=== PATIENT | male | born 2000 | race Caucasian/White ===

== ENCOUNTER 2020-08-31 00:37 | Emergency (ER) | payer SELFPAY ==
[2020-08-31 00:53] VITALS: BP 132/70; PULSE 78; RESP 16; TEMP 37.7; O2SAT 96; BMI 29.0
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
== END 2020-08-31 02:41 | disposition home or self-care (01) ==
PROVIDERS: Emergency Provider Emergency Medicine Emergency Medical Services
DX: T25.022A Burn of unspecified degree of left foot, initial encounter (principal); T31.0 Burns involving less than 10% of body surface; L03.116 Cellulitis of left lower limb; E11.9 Type 2 diabetes mellitus without complications
CPT/HCPCS: 99283

== ENCOUNTER 2024-07-07 19:34 | Emergency (ER) | payer OTHER, SELFPAY ==
[2024-07-07] VITALS (8 sets, daily range): BP systolic 117–134; BP diastolic 47–76; PULSE 139–150; RESP 16–36; TEMP 36.7–38.8; O2SAT 96–100; BMI 30.1
--- NOTE | ~2024-07-07 | XR_ITS ---
CLINICAL HISTORY: dyspnea 1 view chest x-ray Comparison: None Findings: No consolidation or effusion. Normal size heart. No acute fracture. IMPRESSION: 1. No acute findings. This document has been electronically signed by: Saji Avila MD on 07/07/2024 20:55:09
--- NOTE | 2024-07-07 19:39 | ECG_ITS ---
Test Reason : SOB Blood Pressure : */* mmHG Vent. Rate : 140 BPM Atrial Rate : 140 BPM P-R Int : 132 ms QRS Dur : 80 ms QT Int : 278 ms P-R-T Axes : 63 15 44 degrees QTcB Int : 424 ms Sinus tachycardia Otherwise normal ECG When compared with ECG of 18-Nov-2017 01:09, No significant change was found Referred By: Jean-Claude Gardner Electronically Signed By: CATE PORRAS MD
--- NOTE | 2024-07-07 19:51 | ED.GENADULT ---
HPI - General Adult General Chief complaint: Dyspnea Stated complaint: sob, dry cough Time Seen by Provider: 07/07/24 19:38 Source: patient and EMS Mode of arrival: EMS Limitations: no limitations History of Present Illness HPI narrative: This is a 24-year-old man with a past medical history of asthma, reports history of panic who is brought in by EMS for evaluation dyspnea. The patient states that he had sick contact with family members who were positive for flu, COVID and rhinovirus. Patient reports developing headache, nasal congestion, dry cough and myalgias 1 day prior to presentation. He states that he used his albuterol yesterday evening prior to bed. He reports taking 2 puffs at a time. Patient reports waking up having chest pain associated with his coughing. Patient reports taking 2 more puffs of the albuterol. Patient states that he went most of the day without eating any albuterol and subsequently developed dyspnea and due to nebulized albuterol and a few puffs of of his albuterol inhaler this afternoon. He states feeling feverish. He states no hemoptysis or sputum production. He states no vomiting. He states no changes to bowel habits or any urinary symptoms. Related Data Previous Rx's ?Medication ?Instructions ?Recorded clindamycin HCl 300 mg capsule 300 mg PO Q6H cellulitis 7 days 08/31/20 #28 caps prednisone 50 mg tablet 50 mg PO DAILY 4 days #4 tabs 07/07/24 Allergies Allergy/AdvReac Type Severity Reaction Status Date / Time No Known Allergies Allergy Verified 07/07/24 20:02 [No Known Allergies*] Review of Systems Review of Systems: ROS as per HPI [facility] Past Medical History Medical History Asthma Migraine Social History Social History Advance Directives: No Advance Directives Information Provided: No Physical Exam ED Vital Signs: Vital Signs - 24 hr 07/07/24 19:52 07/07/24 19:58 07/07/24 20:00 Temperature 98.2 F 98.1 F Pulse Rate 145 H 150 H 139 H Respiratory Rate 28 H 22 H 26 H Blood Pressure 117/67 117/67 Pulse Oximetry 99 100 Oxygen Delivery Method Room Air Room Air BMI result Body Mass Index 30.1 Gen: NAD, AOx3 HEENT: NCAT, EOMI, normal conjunctiva CV: Tachycardic rate, regular rhythm Pulm: Few scattered expiratory wheezes GI: Soft, NTND Neuro: Grossly non focal Medications Administered Discontinued Medications Generic Name Dose Route Start Last Admin Trade Name Hernandoq PRN Reason Stop Dose Admin Levalbuterol HCl 2.5 mg/ 0 mg 07/07/24 19:55 07/07/24 19:58 Ipratropium Harcourt 0.5 mg INHALE 07/07/24 19:56 1 dose ONCE ONE Administration Sodium Chloride 1,000 mls @ 999 mls/hr 07/07/24 19:45 07/07/24 20:11 Ns IV 07/07/24 20:45 999 mls/hr .Q1H1M JACOBY Administration Methylprednisolone Sodium Succinate 125 mg 07/07/24 19:40 07/07/24 20:11 Methylprednisolone Sod Succ 125 Mg/2 Ml Vial IVPUSH 07/07/24 19:41 125 mg ONCE ONE Administration Medical Decision Making Medical Decision Making [facility] Narrative: Differential diagnosis includes, but is not limited to viral URI, asthma exacerbation, panic attack, anxiety, pneumothorax. This is not sepsis. Patient is afebrile and hemodynamically stable on room air albeit tachycardic on arrival, which I suspect is likely multifactorial and secondary to this component of anxiety, beta agonist therapy and mild asthma exacerbation. Exam is benign and reassuring is notable for scattered expiratory wheezes consistent with bronchospasm for which patient is provided nebulized bronchodilators and Solu-Medrol. He is also provided supportive care with IV fluids and Toradol. Care is transitioned to oncoming physician, Dr. Calhoun, with disposition pending completion of. Of observation and spacing of nebulized bronchodilators. Admission/Observation Consideration of admission/observation: Escalation of care including admission/observation considered Lab Data [facility] Lab Attestation statement: I reviewed the patient's lab results. CBC is unremarkable with no cell line derangement. Metabolic panel is unremarkable with no acute kidney injury or electrolyte derangement. Patient is negative for COVID-19, influenza and RSV. 07/07/24 20:07 07/07/24 20:07 Labs: Lab Results 07/07/24 07/07/24 Range/Units 20:06 20:07 WBC 6.5 (4.8-10.8) X10*3/uL RBC 4.92 (4.60-5.80) X10*6/uL Hgb 14.8 (14.0-18.0) g/dl Hct 40.9 L (42.0-52.0) % MCV 83.1 (80.0-98.0) fL MCH 30.1 (27.0-33.0) pg MCHC 36.2 H (31.0-36.0) g/dl RDW 12.2 (11.0-16.0) % Plt Count 290 (160-400) X10*3/uL MPV 8.7 L (9.4-12.4) fL Immature Gran % (Auto) 0.3 (0.0-0.4) % Neut % (Auto) 66.6 (45-73) % Lymph % (Auto) 13.7 L (20-40) % [place] % (Auto) 18.6 H (2-11) % Eos % (Auto) 0.5 (0-4) % Baso % (Auto) 0.3 (0-2) % Lymph # (Auto) 0.9 L (1.2-4.9) X10*3/uL [place] # (Auto) 1.2 (0.1-1.2) X10*3/uL Eos # (Auto) 0.0 (0.0-0.4) X10*3/uL Baso # (Auto) 0.0 (0.0-0.2) X10*3/uL Abs Immat Gran (auto) 0.02 (0.00-0.03) X10*3/uL Absolute Neuts (auto) 4.4 (2.0-8.3) x10*3/uL Absolute Nucleated RBC 0.000 (0.0-0.012) X10*3/uL Nucleated RBC % (auto) 0.0 (0.0-0.2) /100WBC Sodium 137 (135-145) mmol/L Potassium 3.3 (3.3-5.1) mmol/L Chloride 107 (96-108) mmol/L Carbon Dioxide 20 L (22-29) mmol/L Anion Gap 13 (12-20) BUN 12 (9-16) mg/dL Creatinine 0.79 (0.5-1.4) mg/dL Estim Creat Clear Calc 149.4 Estimated GFR > 60 Random Glucose 102 (60-115) mg/dL Calcium 9.0 (8.4-10.2) mg/dL Influenza Type A (PCR) NEGATIVE (Negative) Influenza Type B (PCR) NEGATIVE (Negative) RSV RNA Qual (PCR) NEGATIVE (Negative) SARS-CoV-2 RNA (RT-PCR) NEGATIVE (Negative) Independent Interpretation I performed an independent interpretation of an: EKG and Plain X-Ray Interpretation: I independently reviewed and interpreted the patient's EKG, which demonstrates sinus tachycardia at 140 beats per minute, MO 132, QRS 80, QTC 424, no STEMI. I independently reviewed and interpreted the patient's chest x-ray, which demonstrates no pleural effusion, focal consolidation or pneumothorax. Radiology Impression Discussion of test interpretation with radiology: I have reviewed the radiologist's reading. Radiologist Impression: IMPRESSION: 1. No acute findings. This document has been electronically signed by: Saji Avila MD on 07/07/2024 20:55:09 Dictated By: Saji Avila MD Signed By: <Electronically signed by Saij Avila MD in OV> 07/07/242055 Independent Historian Clinical information obtained from an independent historian. History obtained from or confirmed by: EMS EMS provides additional and pre-hospital history Discharge Plan Discharge Clinical Impression: Asthma with exacerbation Patient Disposition: Still a Patient Instructions: Asthma (ED) Additional Instructions: You were seen and evaluated in the emergency room. Your emergency room evaluation was overall very reassuring and you are safe to be discharged home. You tested negative for COVID-19, influenza and RSV. Your blood work was normal. Your chest x-ray was very reassuring with no evidence of pneumonia. You were treated in the emergency room for an asthma exacerbation with nebulizers and steroids. Please use 4 puffs of your albuterol inhaler or 1 nebulized albuterol treatment every 4 hours for the next 24 hours. After 24 hours you may decrease this to every 4 hours as needed for shortness of breath wheezing. You were given a prescription for prednisone. Please take as directed. Your next dose should be taken tomorrow morning. Please follow-up with your primary care doctor in the next 5-7 days. Please return to the emergency room if you develop any worsening symptoms. Prescriptions: New prednisone 50 mg tablet 50 mg PO DAILY 4 Days Qty: 4 0RF No Action clindamycin HCl 300 mg capsule 300 mg PO Q6H 7 Days Qty: 28 0RF Print Language: Yemeni
[2024-07-07] MEDS: levalbuterol HCL 2.5 MG, Ipratropium Bromide 0.5 MG INHALE (19:58)
[2024-07-07] MEDS: 0.9 % Sodium Chloride 1,000 ML 999 ML IV ×2 (20:11→21:36)
[2024-07-07] MEDS: methylPREDNISolone Sod Succ 125 MG/2 ML VIAL IVPUSH (20:11)
[2024-07-07 20:12] LABS: MANUAL DIFF FLAG NO
[2024-07-07 20:18] LABS: Basophils Percent Auto 0.3 % (0-2); Eosinophils Percent Auto 0.5 % (0-4); Hematocrit 40.9 % (42.0-52.0); Hemoglobin 14.8 g/dl (14.0-18.0); Imm Gran Abs Auto 0.02 X10*3/uL (0.00-0.03); Imm Gran Pct Auto 0.3 % (0.0-0.4); Lymphocytes Absolute Auto 0.9 X10*3/uL (1.2-4.9); Lymphocytes Percent Auto 13.7 % (20-40); Mean Corpuscular HGB Conc 36.2 g/dl (31.0-36.0); Mean Corpuscular Hemoglobin 30.1 pg (27.0-33.0); Mean Corpuscular Volume 83.1 fL (80.0-98.0); Mean Platelet Volume 8.7 fL (9.4-12.4); Monocytes Absolute Auto 1.2 X10*3/uL (0.1-1.2); Monocytes Percent Auto 18.6 % (2-11); Neutrophils Absolute Auto 4.4 x10*3/uL (2.0-8.3); Neutrophils Percent Auto 66.6 % (45-73); Platelet Count 290 X10*3/uL (160-400); Red Blood Count 4.92 X10*6/uL (4.60-5.80); Red Cell Distribution Width 12.2 % (11.0-16.0); White Blood Count 6.5 X10*3/uL (4.8-10.8)
[2024-07-07 20:25] LABS: Anion Gap 13 (12-20); Blood Urea Nitrogen 12 mg/dL (9-16); Carbon Dioxide 20 mmol/L (22-29); Chloride 107 mmol/L (96-108); Creatinine Clr Calc Pharmacy 149.4; Estimated Glomerular Filt Rate > 60; Glucose Random 102 mg/dL (60-115); Potassium 3.3 mmol/L (3.3-5.1); Sodium 137 mmol/L (135-145)
[2024-07-07 20:50] LABS: Influenza A PCR NEGATIVE (Negative); Influenza B PCR NEGATIVE (Negative); Resp Syncy Virus RNA Qual PCR NEGATIVE (Negative); SARS COV2 PCR INHOUSE NEGATIVE (Negative)
[2024-07-07] MEDS: Ketorolac Tromethamine 15 MG/ML VIAL IVPUSH (21:14)
[2024-07-07] MEDS: Azithromycin 500 MG TABLET PO (21:36)
[2024-07-07] MEDS: guaiFEN/Codeine SF 200/20/10ML 10 ML LIQUID PO (21:36)
[2024-07-07] MEDS: Acetaminophen 1,000 MG/100 ML PIGGYBACK 400 MG IV (21:49)
[2024-07-08 00:36] VITALS: BP 114/50; PULSE 129; RESP 25; TEMP 36.8; O2SAT 98
[2024-07-08] MEDS: Metoprolol Tartrate 5 MG/5 ML VIAL 2.5 MG IVPUSH (00:37)
[2024-07-08 00:50] LABS: D Dimer High Sensitivity < 150 NG/ML
[2024-07-08 00:57] VITALS: BP 108/46; PULSE 123; RESP 30; TEMP 37.1; O2SAT 96
[2024-07-08 01:34] VITALS: BP 108/51; PULSE 125; RESP 20; TEMP 37.2; O2SAT 97
[2024-07-08 01:38] VITALS: BP 108/51; PULSE 125; RESP 20; TEMP 37.2; O2SAT 97
== END 2024-07-08 01:46 | disposition home or self-care (01) ==
PROVIDERS: Emergency Medicine; Emergency Provider Internal Medicine
DX: J45.901 Unspecified asthma with (acute) exacerbation (principal); R06.02 Shortness of breath; R06.00 Dyspnea, unspecified; R00.0 Tachycardia, unspecified; R51.9 Headache, unspecified; R09.81 Nasal congestion; M79.10 Myalgia, unspecified site; R07.9 Chest pain, unspecified; R05.9 Cough, unspecified; Z03.818 Encounter for observation for suspected exposure to other biological agents ruled out
CPT/HCPCS: 0241U; 36415; 71045; 80048; 85025; 85379; 93005; 94640; 94664; 96361; 96374; 96375; 99285; J0131; J1885; J2919

== ENCOUNTER → 2024-07-07 19:39 | Outpatient (BNV) | payer OTHER, SELFPAY | PROVIDERS: Emergency Provider Internal Medicine; Visit Provider Internal Medicine Cardiovascular Disease | DX: R00.0 Tachycardia, unspecified (principal) | CPT/HCPCS: 93010 ==

== ENCOUNTER → 2024-07-07 19:39 | Outpatient (BNV) | payer OTHER, SELFPAY | PROVIDERS: Emergency Provider Emergency Medicine; Visit Provider Radiology Diagnostic Radiology | DX: R06.02 Shortness of breath (principal) | CPT/HCPCS: 71045 ==